=== PATIENT | female | born 1955 | race Caucasian/White ===

== ENCOUNTER → 2016-08-25 | Outpatient (CLI) | payer OTHER ==
[~2016-08-25] MED LIST: COLA100C3 PO; CYCL10TA PO; HYDR-3713 PO; VITATAB11 PO
--- NOTE | 2016-08-25 15:07 | REPMRS ---
Patient History The patient states she had a clinical breast exam in 09/01 Patient is postmenopausal. Family history of prostate cancer in paternal grandfather at age 50 or over and breast cancer in paternal aunt at age 50 or over. Digital Woman Screen Mammo: August 25, 2016 - Exam #: [id number] Bilateral CC and MLO view(s) were taken. Technologist: Lisa Hammond, Technologist Prior study comparison: May 21, 2013, digital woman screen mammo performed at [facility]. April 20, 2011, bilateral bilat screen digital mammo performed at [facility]. FINDINGS: There are scattered fibroglandular densities. There has been no change in the appearance of the mammogram from the prior studies. There is a mild amount of residual fibroglandular tissue which is fairly symmetric. There is no interval development of dominant mass, architectural distortion, or clustered microcalcification suggestive of malignancy. ASSESSMENT: BI-RADS/ACR category 1 mammogram. Negative. Recommendation Routine screening mammogram in 1 year (for women over age 40). This mammogram was interpreted with the aid of an FDA-approved computer-aided dectection system. Electronically Signed By: Alfa Weller MD 08/25/16 0811
== END ==
LOC: M WHC 12:53
PROVIDERS: ATTEND Specialist
DX: Z12.31 Encounter for screening mammogram for malignant neoplasm of breast (principal)